=== PATIENT | female | born 2000 | race Caucasian/White ===

== ENCOUNTER → 2025-02-08 | Outpatient (CLI) | payer OTHER ==
[2025-02-08 15:34] LABS: PLATELET COUNT, AUTOMATED 193 10^3/uL (150-450)
[2025-02-08 16:05] LABS: GLUCOSE CHALLENGE TEST 1 HOUR 152 MG/DL (LESS THAN 140)
[2025-02-08 16:37] LABS: HIV 1&2 SCREEN NEGATIVE (NEGATIVE)
[2025-02-08 16:45] LABS: HEPATITIS C VIRUS ABY INDEX < 0.02 INDEX (<0.8)
[2025-02-08 17:49] LABS: Trichomonas vaginalis (AMP) NOT DETECTED (NEGATIVE)
[2025-02-08 17:55] LABS: GC DNA AMPLIFICATION NEGATIVE (NEGATIVE)
== END ==
LOC: M PLALAB 10:43
PROVIDERS: ATTEND Obstetrics & Gynecology
DX: Z34.93 Encounter for supervision of normal pregnancy, unspecified, third trimester (principal)

== ENCOUNTER → 2025-02-13 | Outpatient (CLI) | payer OTHER | LOC: M LAB 07:55 | PROVIDERS: ATTEND Obstetrics & Gynecology | DX: O99.810 Abnormal glucose complicating pregnancy (principal) ==

== ENCOUNTER → 2025-04-05 | Outpatient (REF) | payer OTHER ==
[~2025-04-05] MED LIST: PRENTAB9 PO
== END ==
LOC: M SFHCWAGY 17:35
PROVIDERS: ATTEND Student in an Organized Health Care Education/Training Program
DX: Z34.83 Encounter for supervision of other normal pregnancy, third trimester (principal)